=== PATIENT | male | born 1985 | race Two or more races ===

== ENCOUNTER 2024-02-18 17:14 | Emergency (ER) | payer OTHER ==
[~2024-02-18] VITALS: Ht 154.9 cm; Wt 68.0 kg
[2024-02-18] MEDS ORDERED: LIDOCAINE HCL 1% 20 ML VIAL ONE (20:12)
[2024-02-18] MEDS: LIDOCAINE HCL 1% 20 ML VIAL TP ONE (20:15)
[2024-02-18] MEDS ORDERED: TDAP DIPH,PERTUSS,TET VAC/PF 0.5 ML DISP.SYRIN IM ONE (20:24)
[2024-02-18] MEDS: TDAP DIPH,PERTUSS,TET VAC/PF 0.5 ML DISP.SYRIN IM ONE (20:28)
[2024-02-18] MEDS ORDERED: BACITRACIN ZINC OINT 15 GM TUBE ONE (21:52)
[2024-02-18] MEDS ORDERED: HYDR-3972 PO (22:04)
[2024-02-18] MEDS ORDERED: HYDROCODONE/APAP 5-325MG TABLET ONE (22:07)
[2024-02-18] MEDS: HYDROCODONE/APAP 5-325MG TABLET PO ONE (22:10)
[2024-02-18] MEDS: NEOMY/BACITRA/POLYMYXIN B OINT UD PACKET TP ONE (22:21)
[2024-02-18 22:30] VITALS: BP 129/71; TEMP 98.6; O2SAT 98
== END 2024-02-18 22:25 | disposition home or self-care (01) ==
LOC: ER 17:16
DX: S61.213A Laceration without foreign body of left middle finger without damage to nail, initial encounter (principal); S61.215A Laceration without foreign body of left ring finger without damage to nail, initial encounter; W29.3XXA Contact with powered garden and outdoor hand tools and machinery, initial encounter; Y93.89 Activity, other specified; Y92.89 Other specified places as the place of occurrence of the external cause; Y99.8 Other external cause status
CPT/HCPCS: 12002; 99283; J3490; 90715; A4606; A4663

== ENCOUNTER 2024-02-29 21:57 | Emergency (ER) | payer OTHER ==
[~2024-02-29] VITALS: Ht 154.9 cm; Wt 69.4 kg
[~2024-02-29 21:57] MED LIST: HYDR-3972 PO
[2024-02-29 23:05] VITALS: O2SAT 100
== END 2024-02-29 23:30 | disposition home or self-care (01) ==
LOC: ER 21:59
DX: S61.213D Laceration without foreign body of left middle finger without damage to nail, subsequent encounter (principal); Z79.899 Other long term (current) drug therapy; Y92.89 Other specified places as the place of occurrence of the external cause
CPT/HCPCS: A4606; A4663